=== PATIENT | male | born 1995 | race Caucasian/White ===

== ENCOUNTER 2018-09-30 04:28 | Emergency (ER) | payer OTHER ==
[~2018-09-30] VITALS: Ht 177.8 cm; Wt 99.8 kg
[2018-09-30 04:33] VITALS: BP 131/94
[2018-09-30] MEDS ORDERED: IBUPROFEN 600 MG TAB PO ONE (04:40)
--- NOTE | 2018-09-30 04:45 | NUR ---
23 YO M BIB SELF PRESENTS TO ED C/O FEVER, CHILLS AND SORE THROAT X 3 DAYS. PT IS FEBRILE AT THIS TIME; 101.1. PT DENIES NVD. SKIN PINK, WARM, DRY. BREATHING EVEN, UNLABORED. PT DENIES PMH. LAST MOTRIN AT 1200 YESTERDAY.
[2018-09-30] MEDS ORDERED: AZITHROMYCIN 250 MG TAB PO ONE (04:50)
[2018-09-30] MEDS ORDERED: LIDOCAINE VISCOUS 2% 20 ML UDC PO ONE (04:50)
[2018-09-30 05:02] VITALS: BP 128/91
--- NOTE | 2018-09-30 05:02 | NUR ---
Patient discharged with v/s stable. Written and verbal after care instructions given and explained. Patient alert, oriented and verbalized understanding of instructions. Ambulatory with steady gait. All questions addressed prior to discharge. ID band removed. Patient advised to follow up with PMD. Rx of Azithromycin, Lidocaine Hcl, Promethazine, Motrin given. Patient educated on indication of medication including possible reaction and side effects. Opportunity to ask questions provided and answered.
== END 2018-09-30 05:02 | disposition home or self-care (01) ==
LOC: MED 04:28
DX: J02.8 Acute pharyngitis due to other specified organisms (principal); R03.0 Elevated blood-pressure reading, without diagnosis of hypertension
CPT/HCPCS: 99284

== ENCOUNTER 2018-10-02 19:45 | Emergency (ER) | payer OTHER ==
[~2018-10-02] VITALS: Ht 177.8 cm; Wt 99.8 kg
[2018-10-02 19:59] VITALS: BP 136/74
--- NOTE | 2018-10-02 20:02 | NUR ---
PT TO LOBBY, IN NO RR DISTRESS, AWAKE AND ALERT.
--- NOTE | 2018-10-02 21:32 | NUR ---
PT AMBULATED TO BED
--- NOTE | 2018-10-02 21:33 | NUR ---
23/M PRESENTS TO ER WITH FAMILY MEMBER. STATES HE CAME INTO ER 09/28/18 FOR FEVER AND SOAR THROAT BUT HAS NOT GOTTEN BETTER. C/O SOAR THROAT WITH BLISTERS X3 DAYS AGO. HAVE WORSENED OVER THE DAYS. SELF MEDICATED WITH IBUPROFEN FOR PAIN BUT ONLY PROVIDES RELIEF FOR LIMITED TIME.
[2018-10-02] MEDS ORDERED: IBUPROFEN 600 MG TAB PO ONE (21:40)
[2018-10-02 22:08] VITALS: BP 132/79
--- NOTE | 2018-10-02 22:08 | NUR ---
Patient discharged with v/s stable. Written and verbal after care instructions given and explained. Patient alert, oriented and verbalized understanding of instructions. Ambulatory with steady gait. All questions addressed prior to discharge. ID band removed. Patient advised to follow up with PMD. Rx of LIDOCAINE HYDROCHLORIDE 2% VISCOUS SOLUTION 10ML given. Patient educated on indication of medication including possible reaction and side effects. Opportunity to ask questions provided and answered.
== END 2018-10-02 22:08 | disposition home or self-care (01) ==
LOC: MED 19:45
DX: J02.8 Acute pharyngitis due to other specified organisms (principal); B97.89 Other viral agents as the cause of diseases classified elsewhere
CPT/HCPCS: 99283